=== PATIENT | female | born 1990 | race Caucasian/White ===

== ENCOUNTER 2019-03-18 17:00 | Emergency (ER) | payer SELFPAY ==
[2019-03-18 17:13] VITALS: RESP 16
[2019-03-18 17:35] LABS: HCG,QUALITATIVE URINE NEGATIVE (NEGATIVE); SQUAMOUS EPITHIAL 4 /hpf (0-5); URINE BACTERIA FEW (<OCC); URINE BILIRUBIN NEGATIVE (NEGATIVE); URINE BLOOD NEGATIVE (NEGATIVE); URINE CLARITY Hazy (Clear); URINE COLOR Yellow (YELLOW); URINE GLUCOSE (UA) NORMAL (Normal); URINE LEUKOCYTE ESTERASE NEG Leu/uL (Negative); URINE PROTEIN NEGATIVE (NEGATIVE); URINE UROBILINOGEN NORMAL mg/dL (0.2-1.0)
[2019-03-18 18:01] LABS: BASO % 0.6 % (0.0-2.0); EOS # 0.1 K/uL (0.0-0.7); EOS % 1.4 % (0.0-4.0); HEMOGLOBIN 14.6 g/dL (11.0-16.0); LYMPH # 2.3 K/uL (1.0-4.3); LYMPH % 36.3 % (20.0-40.0); MEAN CELL VOLUME 90.6 fL (81.0-99.0); MEAN CORPUSCULAR HEMOGLOBIN 31.4 pg (27.0-31.0); MEAN CORPUSCULAR HGB CONC 34.7 g/dL (33.0-37.0); MEAN PLATELET VOLUME 7.4 fL (7.2-11.7); MONO # 0.5 K/uL (0.0-0.8); MONO % 8.3 % (0.0-10.0); NEUT # 3.4 K/uL (1.8-7.0); NEUT % 53.4 % (50.0-75.0); RBC 4.64 Mil/uL (3.80-5.20); RED CELL DISTRIBUTION WIDTH 11.7 % (11.5-14.5); WHITE BLOOD COUNT 6.4 K/uL (4.8-10.8)
[2019-03-18] MEDS: Sodium Chloride 0.9% 1,000 ML IV STA (18:01)
[2019-03-18 18:15] LABS: ALB/GLOB RATIO 1.4 (1.0-2.1); ALBUMIN 4.7 g/dL (3.5-5.0); BLOOD UREA NITROGEN 14 mg/dL (7-17); CALCIUM 9.8 mg/dl (8.6-10.4); GFR NON-AFRICAN AMERICAN > 60; LIPASE 96 U/L (23-300)
[2019-03-18 18:18] LABS: ALT/SGPT < 6 U/L (9-52); AST/SGOT 24 U/L (14-36)
--- NOTE | 2019-03-18 18:26 | C.PDOC ---
History Of Present Illness 28 y/o female, with no PMHx, presents with abdominal pain x3 days, associated with nausea and vomiting. Reports her period came on time but was only 1 day instead of 4. Otherwise she denies fever, chills, diarrhea, constipation, dys uria, or active vaginal bleeding. Patient took a home test which was negative. <Magnus Granger - Last Filed: 03/18/19 18:24> History Per: Patient History/Exam Limitations: no limitations Onset/Duration Of Symptoms: Days Current Symptoms Are (Timing): Still Present <Magnus Granger - Last Filed: 03/18/19 18:24> <Sammy Vasquez R - Last Filed: 03/18/19 22:44> Time Seen by Provider: 03/18/19 17:18 Chief Complaint (Nursing): GI Problem Past Medical History Reviewed: Historical Data, Nursing Documentation, Vital Signs Vital Signs: Last Vital Signs Temp 98.3 F 03/18/19 17:10 Pulse 72 03/18/19 17:10 Resp 03/18/19 17:10 BP Pulse Ox 100 03/18/19 17:10 Surgical History: Appendectomy Family History: States: No Known Family Hx - Social History Hx Alcohol Use: No Hx Substance Use: No <Magnus Granger - Last Filed: 03/18/19 18:24> Vital Signs: Last Vital Signs Temp 98.1 F 03/18/19 22:40 Pulse 75 03/18/19 22:40 Resp 16 03/18/19 22:40 BP 119/84 03/18/19 22:40 Pulse Ox 99 03/18/19 22:40 <Sammy Vasquez R - Last Filed: 03/18/19 22:44> Review Of Systems Except As Marked, All Systems Reviewed And Found Negative. Constitutional: Negative for: Fever, Chills Gastrointestinal: Positive for: Nausea, Vomiting, Abdominal Pain. Negative for: Diarrhea, Constipation Genitourinary: Negative for: Dysuria, Vaginal Bleeding <Magnus Granger - Last Filed: 03/18/19 18:24> Physical Exam - Physical Exam Additional Physical Exam Comments: Constitutional: No acute distress. Head: Normocephalic. Atraumatic. Eyes: PERRL. ENT: Moist mucous membranes. Neck: Supple. Cardiovascular: Regular rate. Radial pulse 2+ bilaterally. Chest: No tenderness. Respiratory: Clear to auscultation bilaterally. GI: Soft. Diffuse abdominal tenderness. No rebound. No guarding. Back: No CVA tenderness. Musculoskeletal: No tenderness or swelling of extremities. Skin: No rash. Neurologic: Alert, no focal deficit. <Magnus Granger - Last Filed: 03/18/19 18:24> ED Course And Treatment - Laboratory Results Result Diagrams: 03/18/19 17:58 03/18/19 17:58 Lab Results: Total Bilirubin 0.9 mg/dL (0.2-1.3) 03/18/19 17:58 AST 24 U/L (14-36) 03/18/19 17:58 ALT < 6 U/L (9-52) L 03/18/19 17:58 Alkaline Phosphatase 59 U/L (38-126) 03/18/19 17:58 Total Protein 8.1 g/dL (6.3-8.3) 03/18/19 17:58 Albumin 4.7 g/dL (3.5-5.0) 03/18/19 17:58 Globulin 3.4 gm/dL (2.2-3.9) 03/18/19 17:58 Albumin/Globulin Ratio 1.4 (1.0-2.1) 03/18/19 17:58 Lipase 96 U/L (23-300) 03/18/19 17:58 Urine Color Yellow (YELLOW) 03/18/19 17:28 Urine Clarity Hazy (Clear) 03/18/19 17:28 Urine pH 5.0 (5.0-8.0) 03/18/19 17:28 Ur Specific [place] 1.016 (1.003-1.030) 03/18/19 17:28 Urine Protein Negative mg/dL (NEGATIVE) 03/18/19 17:28 Urine Glucose (UA) Normal mg/dL (Normal) 03/18/19 17:28 Urine Ketones Negative mg/dL (NEGATIVE) 03/18/19 17:28 Urine Blood Negative (NEGATIVE) 03/18/19 17:28 Urine Nitrate Negative (NEGATIVE) 03/18/19 17:28 Urine Bilirubin Negative (NEGATIVE) 03/18/19 17:28 Urine Urobilinogen Normal mg/dL (0.2-1.0) 03/18/19 17:28 Ur Leukocyte Esterase Neg Radha/uL (Negative) 03/18/19 17:28 Urine WBC (Auto) 3 /hpf (0-5) 03/18/19 17:28 Urine RBC (Auto) 1 /hpf (0-3) 03/18/19 17:28 Ur Squamous Epith Cells 4 /hpf (0-5) 03/18/19 17:28 Urine Bacteria Few (<OCC) H 03/18/19 17:28 Urine HCG, Qual Negative (NEGATIVE) 03/18/19 17:28 Urine HCG, Qual Negative (NEGATIVE) 03/18/19 17:28 O2 Sat by Pulse Oximetry: 100 (RA) Pulse Ox Interpretation: Normal <Magnus Granger T - Last Filed: 03/18/19 18:24> - Laboratory Results Result Diagrams: 03/18/19 17:58 03/18/19 17:58 Lab Results: Total Bilirubin 0.9 mg/dL (0.2-1.3) 03/18/19 17:58 AST 24 U/L (14-36) 03/18/19 17:58 ALT < 6 U/L (9-52) L 03/18/19 17:58 Alkaline Phosphatase 59 U/L (38-126) 03/18/19 17:58 Total Protein 8.1 g/dL (6.3-8.3) 03/18/19 17:58 Albumin 4.7 g/dL (3.5-5.0) 03/18/19 17:58 Globulin 3.4 gm/dL (2.2-3.9) 03/18/19 17:58 Albumin/Globulin Ratio 1.4 (1.0-2.1) 03/18/19 17:58 Lipase 96 U/L (23-300) 03/18/19 17:58 Urine Color Yellow (YELLOW) 03/18/19 17:28 Urine Clarity Hazy (Clear) 03/18/19 17:28 Urine pH 5.0 (5.0-8.0) 03/18/19 17:28 Ur Specific [place] 1.016 (1.003-1.030) 03/18/19 17:28 Urine Protein Negative mg/dL (NEGATIVE) 03/18/19 17:28 Urine Glucose (UA) Normal mg/dL (Normal) 03/18/19 17:28 Urine Ketones Negative mg/dL (NEGATIVE) 03/18/19 17:28 Urine Blood Negative (NEGATIVE) 03/18/19 17:28 Urine Nitrate Negative (NEGATIVE) 03/18/19 17:28 Urine Bilirubin Negative (NEGATIVE) 03/18/19 17:28 Urine Urobilinogen Normal mg/dL (0.2-1.0) 03/18/19 17:28 Ur Leukocyte Esterase Neg Radha/uL (Negative) 03/18/19 17:28 Urine WBC (Auto) 3 /hpf (0-5) 03/18/19 17:28 Urine RBC (Auto) 1 /hpf (0-3) 03/18/19 17:28 Ur Squamous Epith Cells 4 /hpf (0-5) 03/18/19 17:28 Urine Bacteria Few (<OCC) H 03/18/19 17:28 Urine HCG, Qual Negative (NEGATIVE) 03/18/19 17:28 Urine HCG, Qual Negative (NEGATIVE) 03/18/19 17:28 <Sammy Vasquez - Last Filed: 03/18/19 22:44> Medical Decision Making Medical Decision Making: Plan: --Labs --Urine Culture --UA --IV fluids --Zofran <Magnus Granger - Last Filed: 03/18/19 18:24> Disposition <Magnus Granger - Last Filed: 03/18/19 18:24> Counseled Patient/Family Regarding: Diagnosis - Disposition Disposition Time: 22:43 - POA Present On Arrival: None <Sammy Vasquez - Last Filed: 03/18/19 22:44> - Disposition Referrals: [facility] [Outside] Disposition: HOME/ ROUTINE Condition: STABLE Prescriptions: Dicyclomine [Bentyl] 10 mg PO TID #10 cap Instructions: Acute Abdomen (Belly Pain) Forms: [facility] (Latvian) - Clinical Impression Clinical Impression: Abdominal pain - Scribe Statement The provider has reviewed the documentation as recorded by the Myles Whittaker Provider Attestation: All medical record entries made by the Krishanibfredy were at my direction and personally dictated by me. I have reviewed the chart and agree that the record accurately reflects my personal performance of the history, physical exam, medical decision making, and the department course for this patient. I have also personally directed, reviewed, and agree with the discharge instructions and disposition. <Magnus Granger - Last Filed: 03/18/19 18:24>
[2019-03-18] MEDS: Iohexol 240 (50 ml) PO ONE (19:30)
[2019-03-18] MEDS ORDERED: Iohexol 240 (50 ml) ONE (19:30)
[2019-03-18] MEDS ORDERED: Iodixanol 320 MG/ML 100 ML BOTTLE IV ONE (20:59)
[2019-03-18 22:41] VITALS: BP 119/84; PULSE 75; TEMP 98.1; O2SAT 99
--- NOTE | 2019-03-19 12:12 | CT ---
Date of service: 03/18/2019 PROCEDURE: CT Abdomen and Pelvis with contrast HISTORY: abdominal pain, vomiting COMPARISON: None. TECHNIQUE: Contrast dose: Radiation dose: Total exam DLP = 436.96 mGy-cm. This CT exam was performed using one or more of the following dose reduction techniques: Automated exposure control, adjustment of the mA and/or kV according to patient size, and/or use of iterative reconstruction technique. FINDINGS: LOWER THORAX: Unremarkable. LIVER: Unremarkable. No gross lesion or ductal dilatation. GALLBLADDER AND BILE DUCTS: Unremarkable. PANCREAS: Unremarkable. No gross lesion or ductal dilatation. SPLEEN: Unremarkable. ADRENALS: Unremarkable. No mass. KIDNEYS AND URETERS: Unremarkable. No hydronephrosis. No solid mass. VASCULATURE: Unremarkable. No aortic aneurysm. No aortic atherosclerotic calcification or mural plaque present. BOWEL: Unremarkable. No obstruction. No gross mural thickening. APPENDIX: Normal appendix. PERITONEUM: Unremarkable. No free fluid. No free air. LYMPH NODES: Unremarkable. No enlarged lymph nodes. BLADDER: Unremarkable. REPRODUCTIVE: Unremarkable. BONES: No acute fracture. OTHER FINDINGS: None. IMPRESSION: Unremarkable contrast enhanced CT of the abdomen and pelvis.
== END 2019-03-18 23:05 | disposition home or self-care (01) ==
LOC: C.ER 17:00
DX: R10.9 Unspecified abdominal pain (principal)
CPT/HCPCS: 74177; 80053; 81001; 83690; 84703; 85025; 87086; 87181; 96374; 96375; 99285; J1885; J2405; J7030; Q9966; Q9967

== ENCOUNTER 2019-04-01 18:35 | Emergency (ER) | payer SELFPAY ==
[2019-04-01 19:01] VITALS: TEMP 98.4; O2SAT 100
[2019-04-01] MEDS ORDERED: Sodium Chloride 0.9% 1,000 ML IV ONE (19:45)
--- NOTE | 2019-04-01 19:45 | C.PDOC ---
History Of Present Illness 28 year old female presents with RUQ pain since yesterday associated with some nausea. Patient was seen here on 03/18/19 for abdominal pain, nausea, and vomiting, at that time she had blood work and CT which was negative. Patient re turns today complaining of RUQ and right mid axillary line discomfort. She is speaking in complete sentences, denies fever or chills. Time Seen by Provider: 04/01/19 19:44 Chief Complaint (Nursing): Chest Pain History Per: Patient History/Exam Limitations: no limitations Onset/Duration Of Symptoms: Other (Yesterday) Current Symptoms Are (Timing): Still Present Severity: Moderate Pain Scale Rating Of: 4 Location Of Pain/Discomfort: RUQ, Other (Right mid axillary line) Quality Of Discomfort: Unable To Describe Associated Symptoms: Nausea. denies: Fever, Chills Exacerbating Factors: None Alleviating Factors: None Recent travel outside of the [place]: No Past Medical History Reviewed: Historical Data, Nursing Documentation, Vital Signs Vital Signs: Last Vital Signs Temp 98.4 F 04/01/19 18:59 Pulse 75 04/01/19 18:59 Resp 20 04/01/19 18:59 BP 129/90 04/01/19 18:59 Pulse Ox 100 04/01/19 18:59 Primary Care Provider: Raquel Miranda Surgical History: Appendectomy Family History: States: No Known Family Hx - Social History Hx Alcohol Use: No Hx Substance Use: No Review Of Systems Constitutional: Negative for: Fever, Chills Cardiovascular: Negative for: Chest Pain, Palpitations Respiratory: Negative for: Cough, Shortness of Breath Gastrointestinal: Positive for: Nausea, Abdominal Pain. Negative for: Vomiting Neurological: Negative for: Weakness, Numbness Physical Exam - Physical Exam Appears: Non-toxic Skin: Warm, Dry Head: Normacephalic Eye(s): bilateral: Normal Inspection Oral Mucosa: Moist Chest: Tenderness (Right mid axillary line at ribs 8,9,10.) Cardiovascular: Rhythm Regular Respiratory: No Rales, No Rhonchi, No Wheezing Gastrointestinal/Abdominal: Soft, Tenderness (RUQ), No Guarding, No Rebound Neurological/Psych: Oriented x3 ED Course And Treatment - Laboratory Results Result Diagrams: 04/01/19 20:12 04/01/19 20:12 ECG: Interpreted By Me, Viewed By Me ECG Rhythm: Sinus Rhythm (72), Nonspecific Changes O2 Sat by Pulse Oximetry: 100 (Room air) Pulse Ox Interpretation: Normal Progress Note: Blood work and urinalysis ordered. Pepcid, IV fluids, and zofran administered. Medical Decision Making Medical Decision Making: Upon provider reevaluation patient is feeling better, is medically stable, and requires no further treatment in the ED at this time. Patient will be discharged home with Rx for naproxen and protonix . Counseling was provided and all questions were answered regarding diagnosis and need for follow up with the referred clinic. There is agreement to discharge plan. Return if symptoms persist or worsen. Disposition Counseled Patient/Family Regarding: Studies Performed, Diagnosis, Need For Followup, Rx Given - Disposition Referrals: Raquel Miranda MD [Staff Provider] - Disposition: HOME/ ROUTINE Disposition Time: 19:45 Condition: FAIR Additional Instructions: Please return if symptoms recur Prescriptions: Naproxen [Naprosyn] 1 tab PO BID PRN #25 tab PRN Reason: Pain Pantoprazole Sodium [Protonix] 40 mg PO DAILY #14 ect Instructions: Acute Abdomen (Belly Pain), Adult (DC) Forms: [employer] (Tajik) - Clinical Impression Clinical Impression: Abdominal pain - Scribe Statement The provider has reviewed the documentation as recorded by the Scribfredy Cat All medical record entries made by the Scribe were at my direction and personally dictated by me. I have reviewed the chart and agree that the record accurately reflects my personal performance of the history, physical exam, medical decision making, and the department course for this patient. I have also personally directed, reviewed, and agree with the discharge instructions and disposition.
[2019-04-01] MEDS ORDERED: Sodium Chloride 0.9% 1,000 ML ONE (19:57)
[2019-04-01 20:28] LABS: BASO % 0.3 % (0.0-2.0); EOS # 0.2 K/uL (0.0-0.7); EOS % 1.8 % (0.0-4.0); HCG,QUALITATIVE URINE NEGATIVE (NEGATIVE); HEMOGLOBIN 13.7 g/dL (11.0-16.0); LYMPH # 2.5 K/uL (1.0-4.3); LYMPH % 25.9 % (20.0-40.0); MEAN CELL VOLUME 89.2 fL (81.0-99.0); MEAN CORPUSCULAR HEMOGLOBIN 31.1 pg (27.0-31.0); MEAN CORPUSCULAR HGB CONC 34.9 g/dL (33.0-37.0); MEAN PLATELET VOLUME 7.5 fL (7.2-11.7); MONO # 0.8 K/uL (0.0-0.8); MONO % 8.9 % (0.0-10.0); NEUT % 63.1 % (50.0-75.0); NRBC % 0.1 % (0.0-2.0); RBC 4.4 Mil/uL (3.80-5.20); RED CELL DISTRIBUTION WIDTH 11.6 % (11.5-14.5); WHITE BLOOD COUNT 9.5 K/uL (4.8-10.8)
[2019-04-01 20:30] LABS: SQUAMOUS EPITHIAL 1 /hpf (0-5); URINE BACTERIA RARE (<OCC); URINE BILIRUBIN NEGATIVE (NEGATIVE); URINE BLOOD NEGATIVE (NEGATIVE); URINE CLARITY Hazy (Clear); URINE COLOR Yellow (YELLOW); URINE GLUCOSE (UA) NORMAL (Normal); URINE LEUKOCYTE ESTERASE NEG Leu/uL (Negative); URINE PROTEIN NEGATIVE (NEGATIVE); URINE UROBILINOGEN NORMAL mg/dL (0.2-1.0)
[2019-04-01 20:35] LABS: PROTHROMBIN TIME 11.1 SECONDS (9.7-12.2)
[2019-04-01 20:43] LABS: ALB/GLOB RATIO 1.2 (1.0-2.1); ALBUMIN 4.6 g/dL (3.5-5.0); ALT/SGPT 16 U/L (9-52); AST/SGOT 21 U/L (14-36); BLOOD UREA NITROGEN 10 mg/dL (7-17); CALCIUM 9.4 mg/dl (8.6-10.4); GFR NON-AFRICAN AMERICAN > 60; LIPASE 121 U/L (23-300)
[2019-04-01] MEDS ORDERED: Iohexol 350mg/ml 100 ML ONE (21:57)
[2019-04-01 23:52] VITALS: BP 127/84; PULSE 72; RESP 18
--- NOTE | 2019-04-02 09:18 | CT ---
Date of service: 04/01/2019 PROCEDURE: CT Chest with contrast (Pulmonary Angiogram) HISTORY: Shortness of breath. Right chest pain. COMPARISON: None available. TECHNIQUE: Axial computed tomography images were obtained of the chest in the pulmonary arterial phase of enhancement. Coronal and sagittal reformatted images were created and reviewed. Sagittal coronal MIPS reformatted images were obtained. Radiation dose: Total exam DLP = 331.68 mGy-cm. This CT exam was performed using one or more of the following dose reduction techniques: Automated exposure control, adjustment of the mA and/or kV according to patient size, and/or use of iterative reconstruction technique. FINDINGS: PULMONARY ARTERIES: No evidence of acute central pulmonary embolism. More limited evaluation of the segmental and subsegmental branches. For example, questionable filling defects within segmental branches of the right pulmonary artery on series 2, images 82 and 111-113 may be artifact. Clinical correlation. AORTA: No acute findings. No thoracic aortic aneurysm. No aortic atherosclerotic calcification or mural plaque present. LUNGS: Right lung: Mild nodular consolidation within the inferomedial aspect of the right middle lobe. Mild patchy atelectasis at the right base posteriorly. Left lung: Mild consolidative and or atelectatic changes within the lingula base. PLEURAL SPACES: Unremarkable. No effusion or pneumothorax. HEART: Unremarkable. No cardiomegaly. No significant pericardial effusion. LYMPH NODES: 1.2 centimeter left axillary lymph node. BONES, CHEST WALL: Unremarkable. No fracture or destructive lesion OTHER FINDINGS: Unremarkable. IMPRESSION: 1. No evidence of acute central pulmonary embolism. More limited evaluation of the segmental and subsegmental branches. For example, questionable filling defects within segmental branches of the right pulmonary artery on series 2, images 82 and 111-113 may be artifact. Clinical correlation. 2. 1.2 centimeter left axillary lymph node. 3. Atelectatic changes at the lung bases. A preliminary report was generated at 11:10 p.m. on 04/01/[address] Ramiro Rose from [employer]. This case was placed in the PA review folder.
== END 2019-04-02 00:02 | disposition home or self-care (01) ==
LOC: C.ER 18:35
DX: R10.11 Right upper quadrant pain (principal)
CPT/HCPCS: 71275; 80053; 81001; 83690; 84703; 85025; 85610; 85730; 96374; 96375; 99285; J1885; J2405; J7030; Q9967